=== PATIENT | male | born 1990 | race Caucasian/White ===

== ENCOUNTER 2023-11-10 11:28 | Inpatient (IN) | payer OTHER ==
[2023-11-10 12:26] VITALS: BMI 27.3
[2023-11-10] MEDS ORDERED: ONDANSETRON *ODT* 4 MG TABLET SL PRN (13:07)
[2023-11-10] MEDS ORDERED: IBUPROFEN 400 MG TABLET (FP) PO PRN (13:07)
[2023-11-10] MEDS ORDERED: LOPERAMIDE HCL 2 MG CAPSULE PO PRN (13:07)
[2023-11-10] MEDS ORDERED: ACETAMINOPHEN 325 MG TABLET (FP) PO PRN (13:07)
[2023-11-10] MEDS ORDERED: MAGNESIUM HYDROX 2400MG/30ML ORAL SUSPENSION 30 ML CUP PO PRN (13:07)
[2023-11-10] MEDS ORDERED: DICYCLOMINE HCL 10 MG CAPSULE PO PRN (13:07)
[2023-11-10] MEDS ORDERED: NALOXONE HCL 0.4 MG/ML VIAL IM PRN (13:07)
[2023-11-10] MEDS ORDERED: NALOXONE HCL (KLOXXADO) 8 MG SPRAY NS PRN (13:07)
[2023-11-10] MEDS ORDERED: BENZONATATE 200 MG CAPSULE PO PRN (13:07)
[2023-11-10] MEDS ORDERED: BISMUTH SUBSALICYLATE 524 MG/30 ML PO PRN (13:07)
[2023-11-10] MEDS ORDERED: BENZOCAINE/MENTHOL (CHLORASEPTIC ) LOZENGE MM PRN (13:07)
[2023-11-10] MEDS ORDERED: POLYETHYLENE GLYCOL (HEALTHYLAX) 3350 17 GM PACKET PO PRN (13:07)
[2023-11-10] MEDS ORDERED: METHOCARBAMOL 500 MG TABLET PO PRN (13:07)
[2023-11-10] MEDS ORDERED: guaiFENesin 600 MG TABLET.ER (FP) PO PRN (13:07)
[2023-11-10] MEDS ORDERED: hydrOXYzine PAMOATE 25 MG CAPSULE (FP) PO PRN (13:07)
[2023-11-10] MEDS ORDERED: MAG HYDROX/AL HYDROX/SIMETH 30 ML UNIT-DOSE CUP PO PRN (13:07)
[2023-11-10] MEDS ORDERED: IBUPROFEN 600 MG TABLET (FP) PO PRN (13:07)
[2023-11-10] MEDS ORDERED: methaDONE HCL 10 MG TABLET (FOR DETOX USE ONLY) ONE (14:20)
[2023-11-10] MEDS ORDERED: cloNIDine HCL 0.1 MG TABLET ONE (14:21)
[2023-11-10] MEDS ORDERED: BUPRENORPHINE/NALOXONE 0.5 MG/0.125 MG FILM ONE (14:22)
[2023-11-10] MEDS ORDERED: PRENATAL VITAMINS W/ FOLIC ACID TABLET (FP) PO ONE (14:22)
[2023-11-10] MEDS: cloNIDine HCL 0.1 MG TABLET PO SCH (14:27)
[2023-11-10] MEDS: methaDONE HCL 10 MG TABLET (FOR DETOX USE ONLY) PO ONE (14:29)
[2023-11-10] MEDS: PRENATAL VITAMINS W/ FOLIC ACID TABLET (FP) PO SCH (14:31)
[2023-11-10] MEDS: BUPRENORPHINE/NALOXONE 0.5 MG/0.125 MG FILM SL ONE ×2 (14:31→22:45)
[2023-11-10] MEDS: MELATONIN 5 MG TABLETS PO SCH (22:45)
[2023-11-10] MEDS: THIAMINE 100 MG TABLET PO SCH (22:45)
[2023-11-11] MEDS: BUPRENORPHINE/NALOXONE 0.5 MG/0.125 MG FILM SL SCH (10:21)
[2023-11-11 12:29] LABS: HEMATOCRIT 37.6 % (35.4-49); HEMOGLOBIN 12.3 GM/dL (11.7-16.9); MCH 26.2 pg (25.7-33.7); MCHC 32.6 g/dl (32.0-35.9); MEAN CELL VOLUME 80.3 fl (80-96); MEAN PLT VOLUME 7.6 fl (7.5-11.1); PLATELET COUNT 531 10^3/uL (134-434); RBC 4.69 M/mm3 (4.00-5.60); WHITE BLOOD COUNT 8.1 K/mm3 (4.0-10.0)
[2023-11-11 12:33] LABS: POTASSIUM 4.7 mmol/L (3.5-5.1)
[2023-11-11 12:35] LABS: CALCIUM 8.9 mg/dL (8.5-10.1)
[2023-11-11 12:36] LABS: ALBUMIN 3.6 g/dl (3.4-5.0); BLOOD UREA NITROGEN 8.9 mg/dL (7-18)
[2023-11-11 12:39] LABS: CREATININE 0.8 mg/dL (0.55-1.3)
[2023-11-11 12:40] LABS: BILIRUBIN,TOTAL 0.4 mg/dL (0.2-1); TOT PROT 6.7 g/dl (6.4-8.2)
[2023-11-12 09:35] VITALS: BP 120/75; PULSE 101; RESP 17; TEMP 97.7
[2023-11-12] MEDS: BUPRENORPHINE/NALOXONE 2 MG/0.5 MG FILM PACKET SL SCH (10:23)
[2023-11-12] MEDS: methaDONE HCL 10 MG TABLET (FOR DETOX USE ONLY) PO ONE (10:25)
[2023-11-13] MEDS ORDERED: BUPRENORPHINE/NALOXONE 4 MG/1 MG FILM PACKET SL SCH (10:00)
[2023-11-14] MEDS ORDERED: BUPRENORPHINE/NALOXONE 8 MG/2 MG FILM PACKET SL SCH (10:00)
[2023-11-14] MEDS ORDERED: methaDONE HCL 10 MG TABLET (FOR DETOX USE ONLY) PO ONE (10:00)
[2023-11-15] MEDS ORDERED: BUPRENORPHINE/NALOXONE 8 MG/2 MG FILM PACKET SL SCH (10:00)
== END 2023-11-12 13:10 | disposition home or self-care (01) | DRG 773 ==
LOC: YASAS 11:28 → Y6N 13:18
PROVIDERS: ADMIT Allergy & Immunology; ATTEND Surgery
PROC: HZ2ZZZZ Detoxification Services for Substance Abuse Treatment (ICD-10-PCS; principal; 2023-11-10)
DX: F11.23 Opioid dependence with withdrawal (principal); Z87.891 Personal history of nicotine dependence; Z87.19 Personal history of other diseases of the digestive system
CPT/HCPCS: 36415; 80053; 80305; 85027; 86780; 93005; 93010

== ENCOUNTER 2024-01-25 18:56 | Inpatient (IN) | payer OTHER ==
[2024-01-25 19:26] VITALS: BMI 29.0
[2024-01-25] MEDS ORDERED: MAGNESIUM HYDROX 2400MG/30ML ORAL SUSPENSION 30 ML CUP PO PRN (20:02)
[2024-01-25] MEDS ORDERED: BENZONATATE 200 MG CAPSULE PO PRN (20:02)
[2024-01-25] MEDS ORDERED: POLYETHYLENE GLYCOL (HEALTHYLAX) 3350 17 GM PACKET PO PRN (20:02)
[2024-01-25] MEDS ORDERED: IBUPROFEN 600 MG TABLET (FP) PO PRN (20:02)
[2024-01-25] MEDS ORDERED: LOPERAMIDE HCL 2 MG CAPSULE PO PRN (20:02)
[2024-01-25] MEDS ORDERED: NALOXONE HCL 0.4 MG/ML VIAL IM PRN (20:02)
[2024-01-25] MEDS ORDERED: MAG HYDROX/AL HYDROX/SIMETH 30 ML UNIT-DOSE CUP PO PRN (20:02)
[2024-01-25] MEDS ORDERED: hydrOXYzine PAMOATE 25 MG CAPSULE (FP) PO PRN (20:02)
[2024-01-25] MEDS ORDERED: NALOXONE (NARCAN) HCL 4 MG/0.1 ML SPRAY NS PRN (20:02)
[2024-01-25] MEDS ORDERED: BENZOCAINE/MENTHOL (CHLORASEPTIC ) LOZENGE MM PRN (20:02)
[2024-01-25] MEDS ORDERED: BISMUTH SUBSALICYLATE 524 MG/30 ML PO PRN (20:02)
[2024-01-25] MEDS ORDERED: ACETAMINOPHEN 325 MG TABLET (FP) PO PRN (20:02)
[2024-01-25] MEDS ORDERED: P-EPHED 60MG/TRIPROLIDI 2.5MG TABLET PO PRN (20:02)
[2024-01-25] MEDS ORDERED: guaiFENesin 600 MG TABLET.ER (FP) PO PRN (20:02)
[2024-01-25] MEDS ORDERED: ONDANSETRON *ODT* 4 MG TABLET SL PRN (20:02)
[2024-01-25] MEDS ORDERED: NICOTINE POLACRILEX 2 MG GUM BUC PRN (20:02)
[2024-01-25] MEDS ORDERED: NICOTINE POLACRILEX 2 MG LOZENGE BC PRN (20:02)
[2024-01-25] MEDS ORDERED: IBUPROFEN 400 MG TABLET (FP) PO PRN (20:02)
[2024-01-25] MEDS: THIAMINE 100 MG TABLET PO SCH (22:41)
[2024-01-25] MEDS: MELATONIN 5 MG TABLETS PO SCH (22:41)
[2024-01-26] MEDS ORDERED: PRENATAL VITAMINS W/ FOLIC ACID TABLET (FP) PO ONE (09:22)
[2024-01-26] MEDS: PRENATAL VITAMINS W/ FOLIC ACID TABLET (FP) PO SCH (09:23)
[2024-01-26] MEDS: DICYCLOMINE HCL 10 MG CAPSULE PO PRN (10:56)
[2024-01-26] MEDS: METHOCARBAMOL 500 MG TABLET PO PRN (10:57)
[2024-01-26 12:07] LABS: CHLORIDE 104 mmol/L (98-107); POTASSIUM 4.4 mmol/L (3.5-5.1); SODIUM 138 mmol/L (136-145)
[2024-01-26 12:11] LABS: HEMATOCRIT 36.3 % (35.4-49); MCH 27.1 pg (25.7-33.7); MCHC 33.1 g/dl (32.0-35.9); MEAN CELL VOLUME 81.8 fl (80-96); MEAN PLT VOLUME 7.6 fl (7.5-11.1); PLATELET COUNT 307 10^3/uL (134-434); RBC 4.43 M/mm3 (4.00-5.60); WHITE BLOOD COUNT 6.7 K/mm3 (4.0-10.0)
[2024-01-26 12:19] LABS: CALCIUM 8.6 mg/dL (8.5-10.1)
[2024-01-26 12:20] LABS: ALBUMIN 3.2 g/dl (3.4-5.0); ANION GAP 7 mmol/L (4-13); BLOOD UREA NITROGEN 10.2 mg/dL (7-18); CO2 27 mmol/L (21-32); GLUCOSE,RANDOM 79 mg/dL (74-106)
[2024-01-26 12:23] LABS: CREATININE 0.8 mg/dL (0.55-1.3); SGOT/AST 27 U/L (15-37); SGPT/ALT 26 U/L (13-61)
[2024-01-26 12:25] LABS: BILIRUBIN,TOTAL 0.5 mg/dL (0.2-1); TOT PROT 6.5 g/dl (6.4-8.2)
[2024-01-26 12:26] LABS: ALK PHOS 76 U/L (45-117)
[2024-01-26 20:56] VITALS: RESP 18
[2024-01-27 07:21] VITALS: BP 116/66; PULSE 83; TEMP 97.8
[2024-01-27] MEDS ORDERED: NALOXONE (NARCAN) HCL 4 MG/0.1 ML SPRAY NS PRN (09:51)
== END 2024-01-27 10:11 | disposition home or self-care (01) | DRG 773 ==
LOC: YASAS 18:56 → Y3N 01-26 09:24
PROVIDERS: ADMIT Allergy & Immunology; ATTEND Surgery
PROC: HZ2ZZZZ Detoxification Services for Substance Abuse Treatment (ICD-10-PCS; principal; 2024-01-26)
DX: F11.20 Opioid dependence, uncomplicated (principal); F12.20 Cannabis dependence, uncomplicated; Z87.891 Personal history of nicotine dependence; Z87.19 Personal history of other diseases of the digestive system
CPT/HCPCS: 36415; 80053; 80305; 80307; 85027; 86780; 93005; 93010